=== PATIENT | female | born 1960 | race Caucasian/White ===

== ENCOUNTER 2017-07-10 08:00 | Outpatient (CLI) | payer OTHER ==
[2017-07-10 17:31] LABS: BASOPHILS % (AUTO) 0.6 %; EOSINOPHILS # (AUTO) 0.2 10^3/uL (0.0-0.7); HGB - HEMOGLOBIN 15.2 g/dL (12.0-16.0); LYMPHOCYTES # (AUTO) 1.7 10^3/uL (1.5-3.5); LYMPHOCYTES % (AUTO) 27.4 %; MEAN CORPUSCULAR HEMOGLOBIN 32.8 pg (27.0-31.0); MEAN CORPUSCULAR HGB CONC 34.3 g/dL (32.0-36.0); MEAN CORPUSCULAR VOLUME 95.5 fL (81.0-99.0); MEAN PLATELET VOLUME 9.5 fL (7.9-10.8); MONOCYTES # (AUTO) 0.4 10^3/uL (0.0-1.0); MONOCYTES % (AUTO) 6.7 %; NEUTROPHILS # (AUTO) 3.9 10^3/uL (1.5-6.6); NEUTROPHILS % (AUTO) 62.3 %; PLT - PLATELET COUNT 213 10^3/uL (130-450); RED BLOOD COUNT 4.64 10^6/uL (4.20-5.40); RED CELL DISTRIBUTION WIDTH 13.4 % (12.0-15.0); WHITE BLOOD COUNT 6.3 x10^3/uL (4.8-10.8)
[2017-07-10 17:58] LABS: ALBUMIN/GLOBULIN RATIO 1.4 (1.0-2.2); ALKALINE PHOSPHATASE 62 IU/L (42-121); ALT ALANINE AMINOTRANSFERASE 17 IU/L (10-60); AST ASPARTATE AMINOTRANSFERASE 18 IU/L (10-42); BILIRUBIN,TOTAL 0.4 mg/dL (0.2-1.0); BUN - BLOOD UREA NITROGEN 9 mg/dL (6-20); CALCIUM 8.6 mg/dL (8.5-10.3); CARBON DIOXIDE - CO2 26 mmol/L (21-32); CHLORIDE 105 mmol/L (101-111); CHOL/HDL RATIO 2.7 (<4.4); CHOLESTEROL 202 mg/dL; CREATININE 0.5 mg/dL (0.4-1.0); GFR - MDRD 128 (>89); GLUCOSE 87 mg/dL (70-100); HDL CHOLESTEROL 75 mg/dL; LDL CHOLESTEROL,CALCULATED 107 mg/dL; LDL/HDL RATIO 1.4 (<4.4); SODIUM 138 mmol/L (135-145); TOTAL PROTEIN 6.8 g/dL (6.7-8.2); VLDL CHOLESTEROL 20 mg/dL
== END 2017-07-10 08:01 | disposition home or self-care (01) ==
LOC: LAB.R 08:00
PROVIDERS: ATTEND Nurse Practitioner Primary Care
DX: E03.9 Hypothyroidism, unspecified (principal); Z13.1 Encounter for screening for diabetes mellitus; K21.9 Gastro-esophageal reflux disease without esophagitis; R35.0 Frequency of micturition; Z13.6 Encounter for screening for cardiovascular disorders
CPT/HCPCS: 80053; 80061; 83721; 84443; 85025; 87086

== ENCOUNTER 2017-09-28 11:09 | Outpatient (CLI) | payer OTHER ==
--- NOTE | 2017-09-28 14:44 | Ultrasound Report ---
Procedure Date: 09/28/2017 Accession Number: [id number] / [id number] Procedure: US - Transvaginal CPT Code: FULL RESULT: EXAM: PELVIC ULTRASOUND EXAM DATE: 09/28/2017 12:06 PM. CLINICAL HISTORY: ABNORMAL UTERINE BLEEDING. COMPARISON: None. TECHNIQUE: Realtime transvaginal pelvic scan performed to identify the uterus and adnexa and as an overview of other pelvic structures, with static image documentation. FINDINGS: Uterus: 7.6 x 6.6 x 3.9 cm, volume 102 cc. Anteverted position. Normal overall size and echotexture. Masses: There are multiple fibroids, the largest of which is intramural measures 4.4 x 3.2 x 3.4 cm. Additional submucosal 1.0 x 1.2 x 0.9 cm and subserosal 2.8 x 2.8 x 3.0 cm fibroids. Endometrium: 9 mm. Within normal limits in the premenopausal population only. Cervix: Unremarkable. Right Ovary: 2.0 x 1.6 x 1.2 cm, volume 2.0 cc. Normal echotexture and blood flow. Left Ovary: 1.8 x 1.5 x 1.4 cm, volume 1.9 cc. Normal echotexture and blood flow. Free Fluid: None. Other: None. IMPRESSION: Fibroid uterus with prominent endometrium up to 0.9 cm. Please note that if the patient is postmenopausal, the expected endometrial thickness is less than 0.5 cm. RADIA
== END 2017-09-28 11:10 | disposition home or self-care (01) ==
LOC: DI 11:09
PROVIDERS: ATTEND Nurse Practitioner Primary Care
DX: D25.1 Intramural leiomyoma of uterus (principal); D25.0 Submucous leiomyoma of uterus; D25.2 Subserosal leiomyoma of uterus
CPT/HCPCS: 76830

== ENCOUNTER 2018-09-27 09:40 | Outpatient (CLI) | payer OTHER ==
[2018-09-27 17:36] LABS: BASOPHILS % (AUTO) 0.6 %; EOSINOPHILS # (AUTO) 0.2 10^3/uL (0.0-0.7); HGB - HEMOGLOBIN 14.6 g/dL (12.0-16.0); LYMPHOCYTES # (AUTO) 1.5 10^3/uL (1.5-3.5); LYMPHOCYTES % (AUTO) 29.8 %; MEAN CORPUSCULAR HGB CONC 33.1 g/dL (32.0-36.0); MEAN CORPUSCULAR VOLUME 99.5 fL (81.0-99.0); MEAN PLATELET VOLUME 11.2 fL (7.9-10.8); MONOCYTES # (AUTO) 0.5 10^3/uL (0.0-1.0); MONOCYTES % (AUTO) 9.1 %; NEUTROPHILS # (AUTO) 2.8 10^3/uL (1.5-6.6); NEUTROPHILS % (AUTO) 56.1 %; PLT - PLATELET COUNT 219 10^3/uL (130-450); RED BLOOD COUNT 4.43 10^6/uL (4.20-5.40); RED CELL DISTRIBUTION WIDTH 12.1 % (12.0-15.0); WHITE BLOOD COUNT 4.9 x10^3/uL (4.8-10.8)
[2018-09-27 18:06] LABS: ALBUMIN 3.8 g/dL (3.2-5.5); ALBUMIN/GLOBULIN RATIO 1.2 (1.0-2.2); ALKALINE PHOSPHATASE 56 IU/L (42-121); ALT ALANINE AMINOTRANSFERASE 35 IU/L (10-60); AST ASPARTATE AMINOTRANSFERASE 20 IU/L (10-42); BILIRUBIN,TOTAL 0.9 mg/dL (0.2-1.0); BUN - BLOOD UREA NITROGEN 15 mg/dL (6-20); CALCIUM 8.9 mg/dL (8.5-10.3); CARBON DIOXIDE - CO2 24 mmol/L (21-32); CHLORIDE 106 mmol/L (101-111); CHOLESTEROL 204 mg/dL; CREATININE 0.5 mg/dL (0.4-1.0); GFR - MDRD 128 (>89); GLUCOSE 90 mg/dL (70-100); HDL CHOLESTEROL 69 mg/dL; LDL CHOLESTEROL,CALCULATED 121 mg/dL; LDL/HDL RATIO 1.8 (<4.4); SODIUM 140 mmol/L (135-145); TOTAL PROTEIN 6.9 g/dL (6.7-8.2); VLDL CHOLESTEROL 14 mg/dL
[2018-09-27 18:29] LABS: HB2 TOTAL 15.2 g/dL; HEMOGLOBIN A1C 0.48 g/dL
== END 2018-09-27 09:41 | disposition home or self-care (01) ==
LOC: LAB.S 09:40
PROVIDERS: ATTEND Internal Medicine
DX: Z00.00 Encounter for general adult medical examination without abnormal findings (principal); F41.8 Other specified anxiety disorders; E78.5 Hyperlipidemia, unspecified; E03.9 Hypothyroidism, unspecified
CPT/HCPCS: 36415; 80053; 80061; 83036; 83721; 84443; 85025

== ENCOUNTER 2018-11-11 09:10 | Outpatient (CLI) | payer OTHER | END 2018-11-11 09:11 | disposition home or self-care (01) | LOC: LAB.S 09:10 | PROVIDERS: ATTEND Registered Nurse | DX: E03.9 Hypothyroidism, unspecified (principal) | CPT/HCPCS: 36415; 84443 ==

== ENCOUNTER 2018-12-31 10:42 | Outpatient (CLI) | payer OTHER ==
[2018-12-31 18:03] LABS: T4 (THYROXINE) 1.87 ug/dL (6.09-12.23)
[2018-12-31 18:09] LABS: FREE T4 (FREE THYROXINE) 0.33 ng/dL (0.58-1.64)
[2018-12-31 18:13] LABS: TOTAL T3 0.57 ng/mL (0.87-1.78)
[2018-12-31 18:51] LABS: THYROID STIMULATING HORMONE 51.43 uIU/mL (0.34-5.60)
== END 2018-12-31 10:43 | disposition home or self-care (01) ==
LOC: LAB.S 10:42
DX: E07.9 Disorder of thyroid, unspecified (principal)
CPT/HCPCS: 36415; 84436; 84439; 84443; 84480; 84481; 86376

== ENCOUNTER 2019-01-14 15:36 | Outpatient (CLI) | payer OTHER ==
--- NOTE | 2019-01-14 17:03 | Ultrasound Report ---
Reason: ENLARGED THYROID Procedure Date: 01/14/2019 Accession Number: [id number] / [id number] Procedure: US - Head or Neck Soft Tissue CPT Code: Final Report FULL RESULT: EXAM: THYROID ULTRASOUND EXAM DATE: 01/14/2019 04:23 PM. CLINICAL HISTORY: Enlarged thyroid on physical exam. COMPARISON: None. TECHNIQUE: Real time sonographic imaging of the thyroid was performed by the manager golf. Multiple rental sales representative static images were saved for review. FINDINGS: THYROID GLAND: Right Lobe: 5.0 x 2.0 x 2.0 cm, volume 10.5 cc. Severely heterogeneous echotexture. No hypervascularity. Right Lobe Nodules: None. Left Lobe: 4.4 x 1.3 x 1.8 cm, volume 5.4 cc. Severely heterogeneous echotexture. No hypervascularity. Left Lobe Nodules: None. Isthmus: 0.1 cm AP. Isthmic Nodules: None. LYMPH NODES: No adenopathy demonstrated in the central or lateral compartment. OTHER: None. IMPRESSION: 1. Severely heterogeneous thyroid parenchyma diffusely may be secondary to prior thyroiditis. 2. No definable or measurable focal nodules. 3. Overall thyroid volume within normal limits. Management recommendations are based on 2015 [employer] Management Guidelines for Adult Patients with Thyroid Nodules and Differentiated Thyroid Cancer. RADIA
== END 2019-01-14 15:37 | disposition home or self-care (01) ==
LOC: DI 15:36
PROVIDERS: ATTEND Registered Nurse
DX: E04.9 Nontoxic goiter, unspecified (principal)
CPT/HCPCS: 76536

== ENCOUNTER 2020-04-12 13:54 | Outpatient (CLI) | payer OTHER ==
--- NOTE | 2020-04-13 13:24 | Ultrasound Report ---
PROCEDURE: Pelvic w/Transvaginal INDICATIONS: UTERUS FIBROIDS TECHNIQUE: Real-time scanning was performed of the pelvic organs, with image documentation. Additional endovagi nal scanning was necessary due to incomplete visualization of the adnexal and endometrial structures by transabdominal scanning. COMPARISON: Pelvic ultrasound 09/28/2017. FINDINGS: No pathologic free abdominal or pelvic fluid. Uterus: Uterus is anteverted and normal in size at 3.2 x 5.9 x 7.2 cm. The endometrium measures 6.0 mm in combined thickness. There is a right-sided lateral subserosal/intramural 3.9 x 2.5 x 2.1 cm f ibroid, and a second left-sided lateral subserosal/intramural 3.4 x 3.3 x 3.0 cm fibroid. This is mil dly improved in size from the comparison study. A fundal posterior subserosal fibroid also is present measuring approximately 1.0 x 1.0 x 0.9 cm. Ovaries: The right ovary measures 1.4 x 0.8 x 0.9 cm and the left measures 1.8 x 1.1 x 1.2 cm. IMPRESSION: 3 separate uterine fibroids are present, the largest of which has mildly diminished in size with refe rence to the comparison study from 2018. Normal endometrial lining thickness, no sign of endometrial mass. Ovaries appear normal. Reviewed by: Neo De Paz MD on 04/13/2020 1:23 PM PST Approved by: Neo De Paz MD on 04/13/2020 1:23 PM PST Station ID: [id number]
== END 2020-04-12 13:55 | disposition home or self-care (01) ==
LOC: DI 13:54
PROVIDERS: ATTEND Obstetrics & Gynecology
DX: D25.2 Subserosal leiomyoma of uterus (principal); D25.1 Intramural leiomyoma of uterus

== ENCOUNTER 2020-05-13 09:38 | Outpatient (CLI) | payer OTHER ==
--- NOTE | 2020-05-14 10:49 | Mammography Report ---
BILATERAL DIGITAL SCREENING MAMMOGRAM 3D/2D: 05/13/2020 CLINICAL: Routine screening. Comparison is made to exams dated: 07/11/2012 mammogram and 03/18/2008 mammogram - [facility]. There are scattered fibroglandular elements in both breasts. No significant masses, calcifications, or other findings are seen in either breast. There has been no significant interval change. IMPRESSION: NEGATIVE There is no mammographic evidence of malignancy. A 1 year screening mammogram is recommended. This exam was interpreted at Station ID: [id number]. NOTE: For mammograms, a report in lay terms will be sent to the patient. Approximately 15% of breast malignancies will not be visualized mammographically. In the management of a palpable breast mass, a negative mammogram must not discourage biopsy of a clinically suspicious lesion. Electronically Signed By: Franco Welch M.D., jr/domingo:05/13/2020 10:41:18 ACR BI-RADS Category 1: Negative 3341F PARENCHYMAL PATTERN: (A) - The breast(s) demonstrate(s) scattered fibroglandular densities. BI-RADS CATEGORY: (1) - 1 RECOMMENDATION: (ANNUAL) - Recommend routine annual screening mammography. [id number] 1 year screening LATERALITY: (B)
== END 2020-05-13 09:39 | disposition home or self-care (01) ==
LOC: DI.N 09:38
PROVIDERS: ATTEND Obstetrics & Gynecology
DX: Z12.31 Encounter for screening mammogram for malignant neoplasm of breast (principal)

== ENCOUNTER 2021-03-01 13:32 | Outpatient (CLI) | payer OTHER ==
--- NOTE | 2021-03-01 18:55 | XRAY Report ---
PROCEDURE: Lumbar Spine 2 View INDICATIONS: CONTUSION OF LOWER BACK AND PELVIS TECHNIQUE: 3 views of the lumbar spine were acquired. COMPARISON: None. FINDINGS: Bones: 5 [id number] vertebrae are present. There is normal bony alignment. Approximately 11 de grees of convex left lumbar spine scoliosis. No vertebral body compression fractures. No suspicious bony lesions. Mild L5-S1 facet arthropathy. Soft tissues: Overlying bowel gas pattern is normal. No suspicious soft tissue calcifications. IMPRESSION: No fracture. No acute osseous lesion. If there is continued clinical concern for pathology, then MRI should be considered for further evaluation. Reviewed by: Amarilis Dale MD, PhD on 03/01/2021 5:53 PM [facility] Approved by: Amarilis Dale MD, PhD on 03/01/2021 5:53 PM [facility] Station ID: [id number]
== END 2021-03-01 23:59 | disposition home or self-care (01) ==
LOC: DI.S 13:32
PROVIDERS: ATTEND Emergency Medicine
DX: S30.0XXA Contusion of lower back and pelvis, initial encounter (principal)

== ENCOUNTER 2022-01-20 12:07 | Outpatient (CLI) | payer OTHER ==
[2022-01-20 12:50] LABS: T4 (THYROXINE) 8.63 ug/dL (6.09-12.23)
[2022-01-20 12:53] LABS: THYROID STIMULATING HORMONE 0.71 uIU/mL (0.34-5.60)
[2022-01-20 12:54] LABS: FREE T3 2.62 pg/mL (2.5-3.9)
== END 2022-01-20 12:08 | disposition home or self-care (01) ==
LOC: LAB 12:07
PROVIDERS: ATTEND Naturopath
DX: E06.3 Autoimmune thyroiditis (principal)
CPT/HCPCS: 36415; 84436; 84439; 84443; 84480; 84481; 86376

== ENCOUNTER 2022-05-29 08:53 | Outpatient (CLI) | payer OTHER ==
[2022-05-29 09:14] LABS: BASOPHILS % (AUTO) 0.7 %; EOSINOPHILS # (AUTO) 0.3 10^3/uL (0.0-0.7); EOSINOPHILS % (AUTO) 4.8 %; HCT - HEMATOCRIT 41.5 % (37.0-47.0); HGB - HEMOGLOBIN 14.1 g/dL (12.0-16.0); LYMPHOCYTES # (AUTO) 1.7 10^3/uL (1.5-3.5); LYMPHOCYTES % (AUTO) 27.8 %; MEAN CORPUSCULAR HEMOGLOBIN 32.6 pg (27.0-31.0); MEAN CORPUSCULAR VOLUME 96.1 fL (81.0-99.0); MEAN PLATELET VOLUME 10.5 fL (7.9-10.8); MONOCYTES # (AUTO) 0.5 10^3/uL (0.0-1.0); MONOCYTES % (AUTO) 8.5 %; NEUTROPHILS # (AUTO) 3.5 10^3/uL (1.5-6.6); PLT - PLATELET COUNT 228 10^3/uL (130-450); RED BLOOD COUNT 4.32 10^6/uL (4.20-5.40); RED CELL DISTRIBUTION WIDTH 12.1 % (12.0-15.0)
[2022-05-29 09:29] LABS: CHOL/HDL RATIO 2.8 (<4.4); CHOLESTEROL 206 mg/dL; HDL CHOLESTEROL 73 mg/dL; LDL CHOLESTEROL,CALCULATED 122 mg/dL; LDL/HDL RATIO 1.7 (<4.4); TRIGLYCERIDES 55 mg/dL; VLDL CHOLESTEROL 11 mg/dL
[2022-05-29 09:38] LABS: T4 (THYROXINE) 7.81 ug/dL (6.09-12.23)
[2022-05-29 09:41] LABS: THYROID STIMULATING HORMONE 0.33 uIU/mL (0.34-5.60)
[2022-05-29 09:43] LABS: FREE T3 3.16 pg/mL (2.5-3.9); FREE T4 (FREE THYROXINE) 0.99 ng/dL (0.58-1.64)
[2022-05-30 07:10] LABS: ESTRADIOL <5.0 pg/mL (.); PROGESTERONE 0.2 ng/mL (.)
[2022-05-30 21:08] LABS: THYROGLOBULIN ANTIBODY <1.0 IU/mL (0.0-0.9)
== END 2022-05-29 08:54 | disposition home or self-care (01) ==
LOC: LAB 08:53
PROVIDERS: ATTEND Naturopath
DX: E06.3 Autoimmune thyroiditis (principal)
CPT/HCPCS: 36415; 80061; 82670; 83721; 84144; 84436; 84439; 84443; 84480; 84481; 85025; 86800

== ENCOUNTER 2022-06-07 15:14 | Outpatient (CLI) | payer OTHER ==
--- NOTE | 2022-06-08 10:10 | Mammography Report ---
BILATERAL DIGITAL SCREENING MAMMOGRAM 3D/2D: 06/07/2022 CLINICAL: Routine screening. Comparison is made to exams dated: 05/13/2020 mammogram - [facility] and 07/11/2012 m ammogram - [facility]. There are scattered areas of fibroglandular density in both breasts (category b / 25%-50% glandular t issue). No significant masses, calcifications, or other findings are seen in either breast. There has been no significant interval change. IMPRESSION: NEGATIVE There is no mammographic evidence of malignancy. A 1 year screening mammogram is recommended. Based on the Tyrer Cuzick model (a risk assessment model) the patients lifetime risk is 6.8% and her 10 year risk is 2.7%. According to the ACR, ACS, and NCCN guidelines, an annual breast MRI exam jaimie g with mammogram is recommended if the patients lifetime risk is 20% or greater. This exam was interpreted at Station ID: [id number]. NOTE: For mammograms, a report in lay terms will be sent to the patient. Approximately 15% of breast malignancies will not be visualized mammographically. In the management of a palpable breast mass, a negative mammogram must not discourage biopsy of a clinically suspicious lesion. Electronically Signed By: Ubaldo garcia/domingo:06/08/2022 07:10:36 letter sent: No_Letter ACR BI-RADS Category 1: Negative 3341F PARENCHYMAL PATTERN: (A) - The breast(s) demonstrate(s) scattered fibroglandular densities. BI-RADS CATEGORY: (1) - 1 Mammogram [id number] 1 year screening LATERALITY: (B)
== END 2022-06-07 15:15 | disposition home or self-care (01) ==
LOC: DI.S 15:14
PROVIDERS: ATTEND Naturopath
DX: Z12.31 Encounter for screening mammogram for malignant neoplasm of breast (principal)

== ENCOUNTER 2022-08-01 08:00 | Outpatient (CLI) | payer OTHER ==
[2022-08-01 10:05] LABS: T4 (THYROXINE) 5.1 ug/dL (6.09-12.23)
[2022-08-01 10:08] LABS: THYROID STIMULATING HORMONE 16.33 uIU/mL (0.34-5.60)
[2022-08-01 10:09] LABS: FREE T3 3.02 pg/mL (2.5-3.9)
[2022-08-01 10:10] LABS: FREE T4 (FREE THYROXINE) 0.53 ng/dL (0.58-1.64)
== END 2022-08-01 23:52 | disposition home or self-care (01) ==
LOC: LAB 08:00
PROVIDERS: ATTEND Naturopath
DX: E06.3 Autoimmune thyroiditis (principal)
CPT/HCPCS: 36415; 84436; 84439; 84443; 84480; 84481; 86376

== ENCOUNTER 2022-10-04 10:22 | Outpatient (CLI) | payer OTHER ==
[2022-10-04 11:06] LABS: THYROID STIMULATING HORMONE 9.71 uIU/mL (0.34-5.60)
== END 2022-10-04 10:23 | disposition home or self-care (01) ==
LOC: LAB 10:22
PROVIDERS: ATTEND Naturopath
DX: E06.3 Autoimmune thyroiditis (principal)
CPT/HCPCS: 36415; 84436; 84439; 84443; 84480; 84481; 86376

== ENCOUNTER 2022-12-18 13:06 | Outpatient (CLI) | payer OTHER ==
[2022-12-18 14:10] LABS: THYROID STIMULATING HORMONE 5.15 uIU/mL (0.34-5.60)
== END 2022-12-18 13:07 | disposition home or self-care (01) ==
LOC: LAB 13:06
PROVIDERS: ATTEND Naturopath
DX: E06.3 Autoimmune thyroiditis (principal)
CPT/HCPCS: 36415; 84436; 84439; 84443; 84480; 84481; 86376

== ENCOUNTER 2023-04-01 09:46 | Outpatient (CLI) | payer OTHER ==
[2023-04-01 10:13] LABS: BASOPHILS % (AUTO) 0.4 %; EOSINOPHILS # (AUTO) 0.3 10^3/uL (0.0-0.7); EOSINOPHILS % (AUTO) 5.3 %; HCT - HEMATOCRIT 44.3 % (37.0-47.0); HGB - HEMOGLOBIN 14.7 g/dL (12.0-16.0); LYMPHOCYTES # (AUTO) 1.7 10^3/uL (1.5-3.5); MEAN CORPUSCULAR HEMOGLOBIN 32.2 pg (27.0-31.0); MEAN CORPUSCULAR HGB CONC 33.2 g/dL (32.0-36.0); MEAN CORPUSCULAR VOLUME 96.9 fL (81.0-99.0); MEAN PLATELET VOLUME 10.8 fL (7.9-10.8); MONOCYTES # (AUTO) 0.4 10^3/uL (0.0-1.0); MONOCYTES % (AUTO) 8.3 %; NEUTROPHILS # (AUTO) 2.9 10^3/uL (1.5-6.6); NEUTROPHILS % (AUTO) 54.6 %; PLT - PLATELET COUNT 215 10^3/uL (130-450); RED BLOOD COUNT 4.57 10^6/uL (4.20-5.40); RED CELL DISTRIBUTION WIDTH 12.4 % (12.0-15.0); WHITE BLOOD COUNT 5.3 x10^3/uL (4.8-10.8)
[2023-04-01 10:40] LABS: ESTIMATED AVERAGE GLUCOSE 100 mg/dL (70-100); HEMOGLOBIN A1c% 5.1 % (4.27-6.07)
[2023-04-01 10:43] LABS: ALBUMIN 4.2 g/dL (3.2-5.5); ALBUMIN/GLOBULIN RATIO 1.5 (1.0-2.2); ALKALINE PHOSPHATASE 59 IU/L (42-121); ALT ALANINE AMINOTRANSFERASE 24 IU/L (10-60); AST ASPARTATE AMINOTRANSFERASE 17 IU/L (10-42); BILIRUBIN,TOTAL 0.6 mg/dL (0.2-1.0); BUN - BLOOD UREA NITROGEN 12 mg/dL (6-20); CALCIUM 9.6 mg/dL (8.5-10.3); CARBON DIOXIDE - CO2 30 mmol/L (21-32); CHLORIDE 104 mmol/L (101-111); CHOL/HDL RATIO 3.1 (<4.4); CHOLESTEROL 198 mg/dL; CREATININE 0.6 mg/dL (0.6-1.3); GFR - MDRD 102 (>89); GLUCOSE 103 mg/dL (74-104); HDL CHOLESTEROL 63 mg/dL; LDL CHOLESTEROL,CALCULATED 110 mg/dL; LDL/HDL RATIO 1.7 (<4.4); POTASSIUM 4.1 mmol/L (3.5-4.5); SODIUM 137 mmol/L (135-145); TRIGLYCERIDES 123 mg/dL (48-352); VLDL CHOLESTEROL 25 mg/dL
[2023-04-01 11:10] LABS: THYROID STIMULATING HORMONE 7.36 uIU/mL (0.34-5.60)
== END 2023-04-01 09:47 | disposition home or self-care (01) ==
LOC: EMS 09:46 → LAB 09:47
PROVIDERS: ATTEND Naturopath
DX: E06.3 Autoimmune thyroiditis (principal)
CPT/HCPCS: 36415; 80053; 80061; 83036; 83721; 84436; 84439; 84443; 84480; 84481; 85025; 86376

== ENCOUNTER 2023-08-10 13:18 | Outpatient (CLI) | payer OTHER ==
[2023-08-10 14:00] LABS: THYROID STIMULATING HORMONE 3.25 uIU/mL (0.34-5.60)
== END 2023-08-10 13:19 | disposition home or self-care (01) ==
LOC: LAB 13:18
PROVIDERS: ATTEND Naturopath
DX: E06.3 Autoimmune thyroiditis (principal)
CPT/HCPCS: 36415; 84436; 84439; 84443; 84480; 84481; 86376